=== PATIENT | male | born 1995 | race Caucasian/White ===

== ENCOUNTER 2019-10-01 14:54 | Outpatient (CLI) | payer BC, SELFPAY ==
[2019-10-01 15:23] LABS: HCT 44.8 % (40.0-50.0); Mean Corp. HGB Concentration 33.5 g/dL (32.0-36.0); Mean Corpuscular Hemoglobin 29.9 pg (27.0-33.0); Mean Corpuscular Volume 89.4 fL (80-95); Mean Platelet Volume 9.1 fL (8.0-11.0); Platelet Count 280 x1000/uL (130-400); RBC 5.01 m/cumm (4.50-6.00); RBC Distribution Width 12.9 % (11.8-14.1); White Blood Cell Count 7.51 k/cumm (4.4-10.8)
[2019-10-01 16:18] LABS: Albumin 4.2 g/dL (3.4-5.0); Calcium 9.8 mg/dL (8.5-10.1); Glucose 87 mg/dL (74-106); PHOSPHORUS 4.5 mg/dL (2.6-4.7)
== END 2019-10-01 15:14 ==
PROVIDERS: PCP Internal Medicine; Visit Provider Internal Medicine
DX: G40.89 Other seizures (principal); R79.9 Abnormal finding of blood chemistry, unspecified
CPT/HCPCS: 36415; 82947; 85027; 82040; 82310; 84100

== ENCOUNTER 2020-06-04 17:14 | Emergency (ER) | payer BC, SELFPAY ==
[2020-06-04] VITALS (10 sets, daily range): BP systolic 97–143; BP diastolic 53–87; PULSE 93–110; RESP 16–22; TEMP 36.5; O2SAT 95–98
--- NOTE | 2020-06-04 16:59 | ED.GENADUL_ITS ---
Discharge Plan Disposition Patient Disposition: HOME Condition: Stable Discharge Details Clinical Impression: Near syncope, Seizure disorder Primary Care Provider: Wan Galvin ED Provider: Dang Kate Discharge Instructions Instructions: Near Syncope (ED), Recurrent Seizures in Adults (ED) Additional Instructions: Drink plenty of fluids and get plenty of rest. Alternate tylenol and motrin as needed and directed for pain. Take your Ativan that you have at home with any further episodes or to help with anxiety or sleep. Follow-up with your scheduled appointment with neurology at [facility] on Tuesday. Return immediately to the emergency department if you develop any worsening or new concerning symptoms. Discharge Data Discharge Date/Time-TO BE ENTERED AT DEPARTURE: 06/04/20 18:57 Discharge Physician: Dang Kate Medical Decision Making 25-year-old male with a history of previously diagnosed seizures presents for se izure at home today. Heart rate 110s. Remainder vitals within normal limits. Patient arrives to ED awake and alert and appears nontoxic and in no acute distress. No murmur. No focal deficits. No meningeal signs. EKG obtained which notes a rate of 95, sinus with no acute ST ischemic findings. History and presentation not consistent with acute tox or infectious etiology. Doubt cardiac etiology/arrhythmia and no c/o chest pain, sob, palpitations or sudden syncope and no acute findings on ekg. Screening labs and CT head/c-spine obtained which are negative for acute findings. Case discussed with [facility] neurology who agreed that it is not completely clear that patient has a history of seizures as he has had a normal EEG in the past. Discussed the possibility of starting Keppra which is the safest seizure medication at this time, but as it is unclear if patient actually has a history of seizures and patient does not like to take this medication due to side effects, will hold on any treatment at this time. Patient would rather defer to his upcoming appointment with the epilepsy clinic at [facility] in 2 days. Usual and customary return precautions given prior to discharge. Medical Records Medical records reviewed: Yes I reviewed the patient's medical records. Imaging Data Radiologic Study: Radiologist's impression: CT Head Without Contrast Exam date and time: 06/04/2020 5:38 PM Age: 25 years old Clinical indication: Other: Seizure TECHNIQUE: Imaging protocol: Computed tomography of the head without contrast. Radiation optimization: All CT scans at this facility use at least one of these dose optimization techniques: automated exposure control; mA and/or kV adjustment per patient size (includes targeted exams where dose is matched to clinical indication); or iterative reconstruction. COMPARISON: No relevant prior studies available. FINDINGS: Brain: No evidence for acute transcortical infarct. No mass effect or midline shift. No extra-axial collection. No acute intracranial hemorrhage. Basal cisterns are patent. Ventricles: No ventriculomegaly. Bones/joints: Unremarkable. No acute fracture. Paranasal sinuses: Visualized sinuses are unremarkable. No fluid levels. Mastoid air cells: Visualized mastoid air cells are well aerated. Soft tissues: Unremarkable. IMPRESSION: No acute intracranial hemorrhage or mass effect. CT Cervical Spine Without Contrast Exam date and time: 06/04/2020 5:38 PM Age: 25 years old Clinical indication: Other: Seizure TECHNIQUE: Imaging protocol: Computed tomography images of the cervical spine without contrast. Radiation optimization: All CT scans at this facility use at least one of these dose optimization techniques: automated exposure control; mA and/or kV adjustment per patient size (includes targeted exams where dose is matched to clinical indication); or iterative reconstruction. COMPARISON: No relevant prior studies available. FINDINGS: Vertebrae: No acute fracture or traumatic subluxation. No spondylolisthesis. The atlantooccipital and atlantoaxial articulations are intact. Facet joint alignments are maintained. Discs/Spinal canal/Neural foramina: No significant disc protrusion. No severe spinal canal stenosis. No significant neural foraminal narrowing. Other bones/joints: Occipital condyles are intact. Prevertebral Space: No prevertebral soft tissue swelling. Soft tissues: Unremarkable. Lungs: Lung apices are normal. IMPRESSION: No acute fracture or traumatic subluxation. Lab Data Lab results reviewed: Yes I reviewed the patient's lab results. Labs: Laboratory Tests Range/Units 06/04/20 06/04/20 17:15 17:15 WBC (4.4-10.8) 10^3/uL 8.72 RBC (4.36-5.78) 10^6/uL 4.89 Hgb (13.5-17.5) g/dL 14.6 Hct (40.0-50.0) % 43.2 MCV (80-95) fL 88.3 MCH (27.0-33.0) pg 29.9 MCHC (32.0-36.0) % 33.8 RDW (11.8-14.1) % 12.2 Plt Count (130-400) 10^3/uL 274 MPV (8.0-11.0) fL 8.9 Immature Gran % 0.6 Neutrophils % 65.9 Lymphocytes % 25.2 Monocytes % 7.0 Eosinophils % 1.0 Basophils % 0.3 Nucleated RBC % % 0 Absolute Neutrophils (1.2-6.7) 10^3/uL 5.74 Absolute Lymphocytes (1.2-3.4) 10^3/uL 2.20 Absolute Monocytes (0.1-0.8) 10^3/uL 0.61 Absolute Eosinophils (0.0-0.7) 10^3/uL 0.09 Absolute Basophils (0.0-0.2) 10^3/uL 0.03 Sodium (136-145) mmol/L 139 Potassium (3.5-5.1) mmol/L 3.9 Chloride (98-107) mmol/L 103 Carbon Dioxide (21.0-32.0) mmol/L 25.5 Anion Gap (3-11) mmol/L 10.5 BUN (7-18) mg/dL 13 Creatinine (0.70-1.30) mg/dL 1.17 Estimated GFR/1.73 m2 (mL/min/1.73m2) >= 60.00 Glucose (74-106) mg/dL 106 Calcium (8.5-10.1) mg/dL 8.9 Total Bilirubin (0.2-1.0) mg/dL 0.5 AST (15-37) U/L 22 ALT (16-63) U/L 32 Alkaline Phosphatase (46-116) U/L 112 Total Protein (6.4-8.2) g/dL 7.7 Albumin (3.4-5.0) g/dL 3.8 ECG Data Attestation: I personally reviewed and interpreted this ECG (s) as follows: Interpretation: rate of 95, sinus, no acute ST elevation or depression. Suspect benign early repolarization in 1 and aVL. MO 142. QRS 93. QTc 439. HPI General Mode of arrival: ambulatory . Date/Time Provider Initiated Documentation: 06/04/20 17:18 . Limitations to Documentation: no limitations . Information obtained by: patient . HPI Narrative: Pt is a 25yo M with a history of epilepsy who presents with seizure today. Patient states this is his third seizure in the last year. Patient states his initial seizure was almost 1 year ago and had a second 1 in September 2019. He states his episode today was similar to his previous seizures. Patient states he was sitting at the computer and suddenly felt like the floor was falling out from under him. He states he stood up to take his Ativan which his primary care doctor Dr. Galvin gave him for seizures and sleep but he states he passed out prior to this happening. He states he initially did not have memory of the event but now is starting to recall the details. Patient's dad heard a thump and checked on him and he was facedown on the ground. Patient states he then recalls EMS or his father placing him into a chair. Patient denies any pain associated with the fall. Patient states he feels fine at this time. Patient states he was initially diagnosed with seizures in [place] [facility] last year. He states he questioned his diagnosis as he had a normal EEG and MRI brain around that time. He states he was started on Keppra which he took for 1 week but stopped due to adverse side effects of feeling weird . He states he has a follow-up appointment with the epilepsy clinic at [facility] in 2 days. He states he drank 2 shots of alcohol last night. He denies any other recent illness, fever, head injury, recent travel, no sick contacts or drug use. Review of Systems All systems reviewed & are unremarkable except as noted in HPI and below Constitutional Constitutional: Reports as per HPI, Denies chills and Denies fever(s) Eyes Eyes: Denies blurry vision ENT Ears, Nose, Mouth, and Throat: Denies dizziness, Denies sore throat and Denies throat swelling Cardiovascular Cardiovascular: Denies chest pain and Denies dyspnea Respiratory Respiratory: Denies cough and Denies dyspnea Gastrointestinal Gastrointestinal: Denies abdominal pain, Denies diarrhea and Denies vomiting Genitourinary Genitourinary: Denies hematuria and Denies dysuria Musculoskeletal Musculoskeletal: Denies back pain and Denies numbness Integumentary/Breasts Skin/Breast: Denies lesions and Denies rash Neurologic Neurologic: Denies dizziness, Denies localized weakness, Denies numbness and Reports seizure-like activity Allergic/Immunologic Allergic/Immunologic: Denies throat swelling [facility] Medical History (Updated 06/04/20 @ 18:43 by Dang Kate DO) Anxiety Epilepsy Surgical History (Updated 06/04/20 @ 17:39 by Dang Kate DO) No significant past surgical history Social History Smoking/Tobacco Use Status: Never Alcohol Intake: current Alcohol Intake frequency: 0-2 drinks per day Drug use: Never Substance use type: does not use Do you feel safe at home: Yes Do you feel safe in your relationship?: Yes Exam Const General: cooperative and healthy appearing Orientation: alert and awake HENMT Head: normal to inspection, no palpable skull fracture, normocephalic and atraumatic Ears: hearing grossly normal bilaterally, external ears normal and TM's normal bilaterally General nose exam: external nose normal Face and sinus: normal facial exam Mouth: oral mucosae normal Teeth and gingiva: dentition normal Throat: posterior oropharynx normal Eyes General: appearance normal, both eyes and all related structures Eyelids: eyelids normal Pupils: PERRL EOM: EOM intact bilaterally Neck Neck: normal visual inspection Lymphatic: no lymphadenopathy noted Chest Chest: normal inspection of the chest Resp Effort & Inspection: normal respiratory effort and able to speak in complete sentences Auscultation: clear to auscultation bilaterally Cardio Rate: regular rate Rhythm: regular rhythm GI Inspection: normal to inspection Palpation: soft, not firm, no guarding, no hepatosplenomegaly, no masses and nontender Auscultation: normal bowel sounds Back/Spine/Pelvis Back: no CVA tenderness Skin General skin exam: no rashes or lesions noted Neuro General: patient alert, patient awake, patient oriented x3, moves all extremities and no meningeal signs Cranial Nerves: CN's II-XI intact bilaterally Cognition: normal cognition Speech: speech normal Gait: normal gait Motor: muscle tone normal throughout Sensory Exam: no sensory deficits noted Extrem General: normal to inspection, full ROM and capillary refill normal Psych Appearance: grossly normal Mental Status: mental status grossly normal Speech and Movement: speech and movement normal Affect: normal affect Thought Process: normal
[2020-06-04 17:27] LABS: Abs Immature Grans 0.05 10^3/uL (0.0-0.06); Absolute Basophil Count 0.03 10^3/uL (0.0-0.2); Absolute Eosinophil Count 0.09 10^3/uL (0.0-0.7); Absolute Monocyte Count 0.61 10^3/uL (0.1-0.8); Absolute Neutrophil Count 5.74 10^3/uL (1.2-6.7); Basophils % 0.3; HCT 43.2 % (40.0-50.0); HGB 14.6 g/dL (13.5-17.5); Immature Grans % 0.6; Lymphocytes % 25.2; MCH 29.9 pg (27.0-33.0); MCHC 33.8 % (32.0-36.0); MCV 88.3 fL (80-95); MPV 8.9 fL (8.0-11.0); Neutrophils % 65.9; Nucleated RBC 0 %; Platelet Count 274 10^3/uL (130-400); RBC 4.89 10^6/uL (4.36-5.78); RDW 12.2 % (11.8-14.1); RDW-SD 39.8 fL; WBC 8.72 10^3/uL (4.4-10.8)
--- NOTE | 2020-06-04 17:30 | DI.CT_ITS ---
EXAM: CT HEAD CERVICAL SPINE WO COMPARISON: No exams were available for comparison FINDINGS: CT examination of the cervical spine was performed without contrast administration. There is no evide nce of acute cervical spine fracture or dislocation. Tracheolaryngeal structures appear intact. No ce rvical mass or adenopathy. Intervertebral disc spaces are well maintained. Noncontrast cranial CT was performed. Ventricular system is normal in appearance. No evidence of acut e intracranial hemorrhage, mass effect, or midline shift. No calvarial fracture. The orbital and temp oral bone structures appear intact. IMPRESSION: No evidence of acute cervical spine injury. No evidence of acute intracranial injury. RADIATION DOSE DELIVERED: 1,564.88mGy.cm Total DLP 1,564.88mGy.cm Total DLP DATA REPOSITORY: All CT scans at this facility are submitted to the National Radiology Data Registry (NRDR) Dose Index Registry (DIR) with the [employer] ([employer]). RADIATION OPTIMIZATION: All CT scans at this facility use at least one of these dose optimization te chniques: automated exposure control; mA and/or kV adjustment per patient size (includes targeted exa ms where dose is matched to clinical indication); or iterative reconstruction.
[2020-06-04] MEDS: Normal Saline 1,000 ML 1000 ML IV (17:42)
[2020-06-04 17:47] LABS: ALT 32 U/L (16-63); AST 22 U/L (15-37); Albumin 3.8 g/dL (3.4-5.0); Alkaline Phosphatase 112 U/L (46-116); Anion Gap 10.5 mmol/L (3-11); BUN 13 mg/dL (7-18); Bilirubin, Total 0.5 mg/dL (0.2-1.0); CO2 25.5 mmol/L (21.0-32.0); CREATININE 1.17 mg/dL (0.70-1.30); Calcium 8.9 mg/dL (8.5-10.1); Chloride 103 mmol/L (98-107); Glucose 106 mg/dL (74-106); Potassium 3.9 mmol/L (3.5-5.1); Sodium 139 mmol/L (136-145); Total Protein 7.7 g/dL (6.4-8.2)
--- NOTE | 2020-06-04 18:14 | DI.VRAD_ITS ---
PROCEDURE INFORMATION: Exam: CT Head Without Contrast Exam date and time: 06/04/2020 5:38 PM Age: 25 years old Clinical indication: Other: Seizure TECHNIQUE: Imaging protocol: Computed tomography of the head without contrast. Radiation optimization: All CT scans at this facility use at least one of these dose optimization techniques: automated exposure control; mA and/or kV adjustment per patient size (includes targeted exams where dose is matched to clinical indication); or iterative reconstruction. COMPARISON: No relevant prior studies available. FINDINGS: Brain: No evidence for acute transcortical infarct. No mass effect or midline shift. No extra-axial collection. No acute intracranial hemorrhage. Basal cisterns are patent. Ventricles: No ventriculomegaly. Bones/joints: Unremarkable. No acute fracture. Paranasal sinuses: Visualized sinuses are unremarkable. No fluid levels. Mastoid air cells: Visualized mastoid air cells are well aerated. Soft tissues: Unremarkable. IMPRESSION: No acute intracranial hemorrhage or mass effect. PROCEDURE INFORMATION: Exam: CT Cervical Spine Without Contrast Exam date and time: 06/04/2020 5:38 PM Age: 25 years old Clinical indication: Other: Seizure TECHNIQUE: Imaging protocol: Computed tomography images of the cervical spine without contrast. Radiation optimization: All CT scans at this facility use at least one of these dose optimization techniques: automated exposure control; mA and/or kV adjustment per patient size (includes targeted exams where dose is matched to clinical indication); or iterative reconstruction. COMPARISON: No relevant prior studies available. FINDINGS: Vertebrae: No acute fracture or traumatic subluxation. No spondylolisthesis. The atlantooccipital and atlantoaxial articulations are intact. Facet joint alignments are maintained. Discs/Spinal canal/Neural foramina: No significant disc protrusion. No severe spinal canal stenosis. No significant neural foraminal narrowing. Other bones/joints: Occipital condyles are intact. Prevertebral Space: No prevertebral soft tissue swelling. Soft tissues: Unremarkable. Lungs: Lung apices are normal. IMPRESSION: No acute fracture or traumatic subluxation. Dictated and Authenticated by: Frandy Dee MD. Ordering:JOSE E Leong MD
--- NOTE | 2020-06-04 18:15 | RT.EKG_ITS ---
APPROVED REPORT Exam: Resting ECG Patient Location: E HR:95 bpm ECG Measurements Heart Rate 95 AXIS ND 142 P 61 QRSd 93 QRS 5 QT 349 T 20 QTc 439 Conclusion Sinus rhythm...normal P axis, V-rate 60- 99 Low voltage, precordial leads...precordial leads <1.0mV. Suspect benign early repolarization in I and aVL. T wave inversion in III. No old EKG to compare.
== END 2020-06-04 18:57 | disposition home or self-care (01) ==
LOC: ER 18:46
PROVIDERS: Emergency Provider Physician Assistant; PCP Internal Medicine
DX: G40.909 Epilepsy, unspecified, not intractable, without status epilepticus (principal); R55 Syncope and collapse
CPT/HCPCS: 36415; 80053; 93005; 96360; 99285; 70450; 72125; 85025; 93010

== ENCOUNTER 2020-06-26 01:22 | Outpatient (RCR) | payer BC, SELFPAY ==
[2020-06-26] MEDS: Normal Saline Flush 10 ML SYR IVP (07:19)
[2020-06-26] MEDS: Cosyntropin 0.25 MG VIAL IV (07:19)
[2020-06-26 07:20] VITALS: BP 113/77; PULSE 69; RESP 18; TEMP 36.6; O2SAT 97
[2020-06-26 07:54] LABS: Glucose 97 mg/dL (74-106)
[2020-06-26 17:57] LABS: Cortisol (Baseline) 12 ug/dL (4-23)
[2020-06-27 11:59] LABS: C-Peptide 2.4 ng/mL (1.1 - 4.4)
[2020-06-27 12:55] LABS: Adrenocorticotropic Hormone, P 48 pg/mL
== END 2020-07-19 23:59 | disposition home or self-care (01) ==
LOC: INF 01:22
PROVIDERS: PCP Internal Medicine; Visit Provider Internal Medicine
DX: G40.909 Epilepsy, unspecified, not intractable, without status epilepticus (principal); E83.51 Hypocalcemia
CPT/HCPCS: 36415; 80400; 82533; 82947; 87206; 96372; 82024; 83525; 84681; J0834

== ENCOUNTER 2020-09-13 04:33 | Emergency (ER) | payer BC, SELFPAY ==
[2020-09-13 04:36] VITALS: BP 121/80; PULSE 89; RESP 16; TEMP 36.5; O2SAT 97
--- NOTE | 2020-09-13 04:51 | ED.GENADUL_ITS ---
Discharge Plan Disposition Patient Disposition: HOME Condition: Good Discharge Details Clinical Impression: Panic attack Primary Care Provider: Wan Galvin ED Provider: Yaya Flower [place] Meds and New Rx's Prescriptions: Continued sertraline 50 mg Tablet 50 mg PO DAILY RF: 0 loratadine [Claritin] 10 mg Tablet 10 mg PO DAILY RF: 0 fluticasone furoate 100 mcg/actuation Blister With Device 1 inh INHALATION DAILY RF: 0 Discharge Instructions Instructions: Panic Attack (ED) Additional Instructions: Use the Ativan provided if needed. Contact PCP Tuesday for new prescription for Ativan if you feel that would be beneficial. Continue to see your therapist. Return to ED for problems. Referrals: Wan Galvin MD [Primary Care Provider] - Medical Decision Making Patient feels much better now. Nausea resolving. No longer panicky. Offered Ativan which he has used in past. Declined to take currently, but would like one 0.5 mg tab to go in case needed. Will contact PCP Tuesday for prescription if he feels it is necessary. HPI General Mode of arrival: ambulatory . Date/Time Provider Initiated Documentation: 09/13/20 04:40 . Limitations to Documentation: no limitations . Information obtained by: patient and RN notes reviewed . HPI Narrative: Patient presents to ED after waking up with panic attack. Has history of same, though this was a particularly severe one. Took CBD oil and magnesium calming supplement with little help at home, but now doing much better here. Developed severe nausea but no emesis. No CP or SOB. No syncope. Has not been ill. Related Data Home Medications Medication Instructions Recorded Confirmed fluticasone furoate 1 inh INHALATION DAILY 09/13/20 09/13/20 loratadine [Claritin] 10 mg PO DAILY 09/13/20 09/13/20 sertraline 50 mg PO DAILY 09/13/20 09/13/20 Allergies Allergy/AdvReac Type Severity Reaction Status Date / Time annatto Allergy Skin Rash Unverified 09/13/20 04:41 environmental Allergy Skin Rash Uncoded 09/13/20 04:41 General Stated Complaint: Anxiety BOLIVAR: 5 Review of Systems Narrative: As documented in HPI otherwise negative as below. Const: no fever, chills, weakness Resp: no cough, SOB, pleuritic pain CV: no CP, diaphoresis, edema, syncope GI: no abdominal pain, vomiting, diarrhea Neuro: no headache, numbness, focal weakness, confusion [facility] Medical History Anxiety Epilepsy Surgical History No significant past surgical history Social History Smoking/Tobacco Use Status: Never Smoking risk assessment performed?: Yes Alcohol Intake: current Alcohol Intake frequency: a few times a month Drug use: Never Substance use type: does not use Do you feel safe at home: Yes Do you feel safe in your relationship?: Yes Exam Narrative Exam Narrative: Const: WDWN male in NAD. HEENT: NC/AT. Normal facial exam. Eyes: Normal conjunctiva and sclera. Neck: Supple. Trachea midline. Lungs: Normal respiratory effort. Lungs are clear. Cor: RRR without murmur/gallop. Good radial pulses. Neuro: A+O x 3. Normal speech, mentation, gait. Cranial nerves II - XII grossly intact. No gross motor or sensory deficit. Skin: Warm and dry. Psych: Calm currently. Good insight and judgment. Course Vital Signs Vital signs: Vital Signs Temperature 97.7 F 09/13/20 04:36 Pulse 89 09/13/20 04:36 Respiratory Rate 16 09/13/20 04:36 Blood Pressure 121/80 09/13/20 04:36 Pulse Oximetry 97 09/13/20 04:36 Temperature 97.7 F 09/13/20 04:36 Temperature Source Skin 09/13/20 04:36 Pulse 89 09/13/20 04:36 Respiratory Rate 16 09/13/20 04:36 Respiratory Effort Non-Labored 09/13/20 04:40 Blood Pressure 121/80 09/13/20 04:36 Blood Pressure Position Sitting 09/13/20 04:36 Pulse Oximetry 97 09/13/20 04:36 Oxygen Delivery Method Room Air 09/13/20 04:36 Oxygen Flow Rate 0 09/13/20 04:36 Pain Level 0 09/13/20 04:36
[2020-09-13] MEDS: LORazepam 0.5 MG TAB PO (04:59)
== END 2020-09-13 04:50 | disposition home or self-care (01) ==
LOC: ER 05:08
PROVIDERS: Emergency Provider Emergency Medicine; PCP Internal Medicine
DX: F41.0 Panic disorder [episodic paroxysmal anxiety] (principal)
CPT/HCPCS: 99283

== ENCOUNTER 2020-10-04 15:18 | Emergency (ER) | payer BC, SELFPAY ==
[2020-10-04] VITALS (13 sets, daily range): BP systolic 114–129; BP diastolic 69–74; PULSE 92–114; RESP 16–27; TEMP 36.7; O2SAT 92–98
--- NOTE | 2020-10-04 15:15 | RT.EKG_ITS ---
APPROVED REPORT Exam: Resting ECG Patient Location: E HR:106 bpm ECG Measurements Heart Rate 106 AXIS GA 141 P 57 QRSd 86 QRS 16 QT 326 T 56 QTc 433 Conclusion Sinus tachycardia...rate> 99 Low voltage, precordial leads...precordial leads <1.0mV I have reviewed and interpreted ECG and agree with software generated interpretation.
--- NOTE | 2020-10-04 15:29 | W.ED.GENAD ---
Discharge Plan Disposition Patient Disposition: HOME Condition: Improving Discharge Details Clinical Impression: Seizure Primary Care Provider: Wan Galvin ED Provider: Dang Kate Home Meds and New Rx's Prescriptions: New oxcarbazepine [Trileptal] 150 mg tablet See Rx Instructions .ROUTE .COMPLEX Qty: 168 RF: 0 Continued cannabidiol 100 mg/mL Solution PO RF: 0 sertraline 50 mg Tablet 50 mg PO DAILY RF: 0 loratadine [Claritin] 10 mg Tablet 10 mg PO DAILY RF: 0 fluticasone furoate 100 mcg/actuation Blister With Device 1 inh INHALATION DAILY RF: 0 Discharge Instructions Instructions: Epilepsy (ED) Additional Instructions: Drink plenty of fluids and get plenty of rest. Take the seizure medication as directed. Fill your trileptal seizure medication prescription that you have at home and take as directed. You were given an additional prescription here if you cannot find your prescription at home. Call your neurologist Dr. Stoddard on Tuesday morning to schedule a follow-up appointment for reevaluation. Return immediately to the emergency department if you develop any worsening or new concerning symptoms. Stand Alone Forms: Work Release Discharge Data Discharge Date/Time-TO BE ENTERED AT DEPARTURE: 10/04/20 17:20 Discharge Physician: Dang Kate Medical Decision Making 1520 -- 24-year-old male with a history of epilepsy diagnosed at [facility] and a history of anxiety for which she takes Zoloft presents after a possible seizure with reported tonic-clonic activity at work prior to arrival. Patient does not recall this episode but stated he felt lightheaded prior to what staff noted was possibly seizure-like activity and a fall. EMS reported that he appeared postictal but patient is now awake and alert and able to provide history and appears in no acute distress. Evaluation of tongue notes a distal tip abrasion/contusion, no open lacerations. Moves all extremities without evidence of pain or trauma. No focal deficits. Patient is followed by neurology Dr. Stoddard at [facility] whom he last saw in August and was given a prescription for Trileptal which she did not start. Patient states he has had reactions in the past with Lamictal and Keppra and would rather not take medications. This is patient's fourth hospitalization in the last 18 months. I saw the patient in May and had discussed with [facility] neurology who noted that he had had a previous negative EEG. He had also had a negative MRI brain at [facility]. We will obtain screening labs and call [facility] neurology. 1600 --labs reviewed and note a white blood cell count of 11, bicarb 17, anion gap 21. With noted tongue contusion and metabolic acidosis, I do suspect that patient likely had a seizure. Case discussed with [facility] neurology on-call Dr. Smith --he reviewed patient's chart and they have diagnosed patient with seizures. He discussed that patient was given a prescription for Trileptal from Dr. Stoddard last month but patient was hesitant to start it. Discussed with patient at bedside and he is agreeable with starting the Trileptal. It was recommended that he take this with incremental increases from 150 at night up to 600 twice daily increasing by 150mg weekly. Patient is recommended to call Dr. Stoddard's office on Tuesday for follow-up. Bicarb and anion gap normalized after IV fluids. Usual and customary return precautions given prior to discharge. Medical Records Medical records reviewed: Yes I reviewed the patient's medical records. Lab Data Lab results reviewed: Yes I reviewed the patient's lab results. Labs: Laboratory Tests Range/Units 10/04/20 10/04/20 10/04/20 15:10 15:10 17:06 WBC (4.4-10.8) 10^3/uL 11.33 H RBC (4.36-5.78) 10^6/uL 5.24 Hgb (13.5-17.5) g/dL 15.7 Hct (40.0-50.0) % 47.2 MCV (80-95) fL 90.1 MCH (27.0-33.0) pg 30.0 MCHC (32.0-36.0) % 33.3 RDW (11.8-14.1) % 12.0 Plt Count (130-400) 10^3/uL 327 MPV (8.0-11.0) fL 9.4 Immature Gran % 0.4 Neutrophils % 47.4 Lymphocytes % 42.5 Monocytes % 7.8 Eosinophils % 1.3 Basophils % 0.6 Nucleated RBC % % 0 Absolute Neutrophils (1.2-6.7) 10^3/uL 5.37 Absolute Lymphocytes (1.2-3.4) 10^3/uL 4.82 H Absolute Monocytes (0.1-0.8) 10^3/uL 0.88 H Absolute Eosinophils (0.0-0.7) 10^3/uL 0.15 Absolute Basophils (0.0-0.2) 10^3/uL 0.07 Sodium (136-145) mmol/L 141 142 Potassium (3.5-5.1) mmol/L 3.5 3.5 Chloride (98-107) mmol/L 102 106 Carbon Dioxide (21.0-32.0) mmol/L 17.6 L 28.5 Anion Gap (3-11) mmol/L 21.4 H 7.5 BUN (7-18) mg/dL 11 13 Creatinine (0.70-1.30) mg/dL 1.57 H 1.34 H Estimated GFR/1.73 m2 (mL/min/1.73m2) 55.02 >= 60.00 Glucose (74-106) mg/dL 111 H 70 L Calcium (8.5-10.1) mg/dL 9.0 8.0 L Total Bilirubin (0.2-1.0) mg/dL 0.6 AST (15-37) U/L 22 ALT (16-63) U/L 31 Alkaline Phosphatase (46-116) U/L 123 H Total Protein (6.4-8.2) g/dL 8.7 H Albumin (3.4-5.0) g/dL 4.3 ECG Data Attestation: I personally reviewed and interpreted this ECG (s) as follows: Interpretation: Rate of 106, sinus, no acute ST elevation or depression. CA 106. QRS 86. QTc 433. HPI General Mode of arrival: EMS. Date/Time Provider Initiated Documentation: 10/04/20 15:29. Limitations to Documentation: no limitations. Information obtained by: patient. HPI Narrative: Patient is a 25-year-old male with a history of anxiety and epilepsy who presents for possible seizure at work prior to arrival. Patient states he has been feeling fine up until possible seizure activity today. Patient states he was standing at work and began to feel lightheaded. Patient does not recall anything until he was being carried out on the stretcher by EMS. Patient states he did bite his tongue. Patient states her first possible seizure was diagnosed 18 months ago for which she is followed by neurology Dr. Surekha Stoddard at [facility]. He states he has been unable to take Keppra due to it making his head weird and unable to take Lamictal due to rash. He last saw Dr. Hood in August and she gave him a prescription for Trileptal which she did not fill. Patient states he has been told by [facility] that he does have a history of seizures but had has a negative EEG at [facility] and a negative MRI brain at [facility]. Patient states he does not like the side effects of medications and is questioning whether he has seizures so does not take the medication. He states he uses CBD oil and takes Zoloft for his anxiety. He denies any other alcohol or drug use or other new over the counter medications. He denies any fever, cough, chest pain, shortness of breath, abdominal pain. Related Data Home Medications Medication Instructions Recorded Confirmed fluticasone furoate 1 inh INHALATION DAILY 09/13/20 09/13/20 loratadine [Claritin] 10 mg PO DAILY 09/13/20 10/04/20 sertraline 50 mg PO DAILY 09/13/20 10/04/20 cannabidiol mg PO 10/04/20 oxcarbazepine [Trileptal] See Rx Instructions .ROUTE 10/04/20 .COMPLEX #168 tab Previous Rx's Medication Instructions Recorded oxcarbazepine [Trileptal] See Rx Instructions .ROUTE 10/04/20 .COMPLEX #168 tab Allergies Allergy/AdvReac Type Severity Reaction Status Date / Time annatto Allergy Skin Rash Unverified 10/04/20 15:26 environmental Allergy Skin Rash Uncoded 10/04/20 15:26 General Stated Complaint: Seizure BOLIVAR: 3 Review of Systems All systems reviewed & are unremarkable except as noted in HPI and below Constitutional Constitutional: Reports as per HPI, Denies chills and Denies fever(s) Eyes Eyes: Denies blurry vision ENT Ears, Nose, Mouth, and Throat: Denies dizziness, Denies sore throat and Denies throat swelling Cardiovascular Cardiovascular: Denies chest pain and Denies dyspnea Respiratory Respiratory: Denies cough and Denies dyspnea Gastrointestinal Gastrointestinal: Denies abdominal pain, Denies diarrhea and Denies vomiting Genitourinary Genitourinary: Denies hematuria and Denies dysuria Musculoskeletal Musculoskeletal: Denies back pain and Denies numbness Integumentary/Breasts Skin/Breast: Denies lesions and Denies rash Neurologic Neurologic: Denies dizziness, Denies localized weakness and Denies numbness Allergic/Immunologic Allergic/Immunologic: Denies throat swelling [facility] Medical History Anxiety Epilepsy Surgical History No significant past surgical history Social History Smoking/Tobacco Use Status: Never Smoking risk assessment performed?: Yes Alcohol Intake: former Drug use: Never Substance use type: does not use Do you feel safe at home: Yes Do you feel safe in your relationship?: Yes Exam Const General: cooperative and healthy appearing Orientation: alert and awake HENMT Head: normal to inspection, normocephalic and atraumatic Ears: hearing grossly normal bilaterally and external ears normal General nose exam: external nose normal Face and sinus: normal facial exam Mouth: oral mucosae normal Mouth/tongue images: 1. Mild contusion/abrasion. No lacerations. Teeth and gingiva: dentition normal Throat: posterior oropharynx normal Eyes General: appearance normal, both eyes and all related structures Eyelids: eyelids normal Pupils: PERRL EOM: EOM intact bilaterally Neck Neck: normal visual inspection Lymphatic: no lymphadenopathy noted Chest Chest: normal inspection of the chest Resp Effort & Inspection: normal respiratory effort and able to speak in complete sentences Auscultation: clear to auscultation bilaterally Cardio Rate: regular rate Rhythm: regular rhythm GI Inspection: normal to inspection Palpation: soft, not firm, no guarding, no hepatosplenomegaly, no masses and nontender Auscultation: normal bowel sounds Back/Spine/Pelvis Back: no CVA tenderness Skin General skin exam: no rashes or lesions noted Neuro General: patient alert, patient awake, moves all extremities, no meningeal signs and no focal motor deficits Cranial Nerves: CN's II-XI intact bilaterally Cognition: normal cognition Speech: speech normal Gait: normal gait Motor: muscle tone normal throughout and strength 5/5 throughout Sensory Exam: no sensory deficits noted Extrem General: normal to inspection, full ROM and capillary refill normal Other: No pain with range of motion or tenderness to palpation of bilateral upper or lower extremities. Psych Appearance: grossly normal Mental Status: mental status grossly normal Speech and Movement: speech and movement normal Affect: normal affect Thought Process: normal Course Vital Signs Vital signs: Vital Signs Temperature 98.1 F 10/04/20 15:19 Pulse 114 H 10/04/20 15:19 Respiratory Rate 18 10/04/20 15:19 Blood Pressure 121/73 10/04/20 15:19 Pulse Oximetry 94 10/04/20 15:19 Temperature 98.1 F 10/04/20 15:19 Temperature Source Temporal Artery Scan 10/04/20 15:19 Pulse 114 H 10/04/20 15:19 Respiratory Rate 18 10/04/20 15:19 Respiratory Effort Non-Labored 10/04/20 15:27 Blood Pressure 121/73 10/04/20 15:19 Blood Pressure Position Sitting 10/04/20 15:19 Pulse Oximetry 94 10/04/20 15:19 Oxygen Delivery Method Room Air 10/04/20 15:19 Oxygen Flow Rate 0 10/04/20 15:19 Pain Level 0 10/04/20 15:19
[2020-10-04 15:32] LABS: Abs Immature Grans 0.05 10^3/uL (0.0-0.06); Absolute Basophil Count 0.07 10^3/uL (0.0-0.2); Absolute Eosinophil Count 0.15 10^3/uL (0.0-0.7); Absolute Monocyte Count 0.88 10^3/uL (0.1-0.8); Absolute Neutrophil Count 5.37 10^3/uL (1.2-6.7); Basophils % 0.6; Eosinophils % 1.3; HCT 47.2 % (40.0-50.0); HGB 15.7 g/dL (13.5-17.5); Immature Grans % 0.4; Lymphocytes % 42.5; MCHC 33.3 % (32.0-36.0); MCV 90.1 fL (80-95); MPV 9.4 fL (8.0-11.0); Monocytes % 7.8; Neutrophils % 47.4; Nucleated RBC 0 %; Platelet Count 327 10^3/uL (130-400); RBC 5.24 10^6/uL (4.36-5.78); RDW-SD 39.3 fL; WBC 11.33 10^3/uL (4.4-10.8)
[2020-10-04 15:34] LABS: Absolute Lymphocyte Count 4.82 10^3/uL (1.2-3.4)
[2020-10-04 15:53] LABS: ALT 31 U/L (16-63); AST 22 U/L (15-37); Albumin 4.3 g/dL (3.4-5.0); Alkaline Phosphatase 123 U/L (46-116); Anion Gap 21.4 mmol/L (3-11); BUN 11 mg/dL (7-18); Bilirubin, Total 0.6 mg/dL (0.2-1.0); CO2 17.6 mmol/L (21.0-32.0); CREATININE 1.57 mg/dL (0.70-1.30); Chloride 102 mmol/L (98-107); Estimated GFR 55.02 (mL/min/1.73m2); Glucose 111 mg/dL (74-106); Potassium 3.5 mmol/L (3.5-5.1); Sodium 141 mmol/L (136-145); Total Protein 8.7 g/dL (6.4-8.2)
[2020-10-04] MEDS: Normal Saline 1,000 ML 1000 ML IV (15:58)
[2020-10-04] MEDS: OXcarbazepine 150 MG TAB 300 MG PO (17:09)
[2020-10-04 17:18] LABS: Anion Gap 7.5 mmol/L (3-11); BUN 13 mg/dL (7-18); CO2 28.5 mmol/L (21.0-32.0); CREATININE 1.34 mg/dL (0.70-1.30); Chloride 106 mmol/L (98-107); Glucose 70 mg/dL (74-106); Potassium 3.5 mmol/L (3.5-5.1); Sodium 142 mmol/L (136-145)
== END 2020-10-04 17:20 | disposition home or self-care (01) ==
PROVIDERS: Emergency Provider Physician Assistant; PCP Internal Medicine
DX: G40.909 Epilepsy, unspecified, not intractable, without status epilepticus (principal); E87.2 Acidosis
CPT/HCPCS: 36415; 36416; 80048; 80053; 82962; 93005; 96360; 99284; 85025; 93010

== ENCOUNTER 2020-10-13 13:18 | Outpatient (REF) | payer BC, SELFPAY ==
--- OUTSIDE RECORDS SUMMARY | 2020-10-13 13:20 | XMS_ITS ---
:1995 Author Care Team Providers Name Role Phone ANU MORALES Primary Care Provider [phone] Allergies Code Code System Name Reaction Severity Status Onset 1877430 RxNorm Annatto ? ? Active ? Cat Dander ? ? Active ? Grass Pollen ? ? Active ? 530258 RxNorm House Dust ? ? Active ? Medications Name Status Start Date Stop Date ? ? Lacey 180 mg tablet Active ? Not availa ble Take 1 tablet every day by oral route. Allergy Relief (fluticasone) 50 mcg/actuation nasal spray,suspen danilo Active ? Not available Sterling 1 spray every day by intranasal route. benzonatate 100 mg capsule Active ? Not a vailable fluoxetine 10 mg capsule Active ? Not manju ilable lamotrigine 25 mg tablet Active ? Not manju ilable levetiracetam 500 mg tablet Active ? Not available lorazepam 0.5 mg tablet Completed ? 08/27/20 20 Take 2 tablets 3 times a day by oral route. oxcarbazepine 300 mg tablet Active ? Not available polymyxin B sulfate 10,000 Active ? Not a vailable unit-trimethoprim 1 mg/mL eye drops sertraline 50 mg tablet Active ? Not avai lable Take 1 tablet every day by oral route. triamcinolone 0.1 % topical ointment Active ? Not available and dimethicone 5 % topical cream zolpidem 5 mg tablet Active ? Not availab le take 1-2 PO night of sleep study if needed Problems Name Status Onset Date Source ? Anxiety Active 07/10/2020 ? Seizure Disorder Active 07/10/2020 ? Hypoglycemia Active 07/21/2020 ? Allergic Rhinitis Active 07/21/2020 ? Eczema Active 07/21/2020 ? Blood Chemistry Abnormal Active 07/21/2020 ? History of Asthma Active 07/21/2020 ? Snoring Active 08/27/2020 ? Procedures None recorded. Results Lab Results None recorded. Past Encounters 08/27/2020 Snoring; Seizure Disorder Apolonia Alvarez [employer]: [address] [place] [phone], Ph. Social History Tobacco Smoking Status Never Smoker Vaccine List None recorded. Plan of Care Reminders Provider Appointments None ? ? recorded. Lab None ? ? recorded. Referral None ? ? recorded. Procedures None ? ? recorded. Surgeries None ? ? recorded. Imaging None ? ? recorded. Vitals Height Weight BMI Blood Pressure 180.34 cm 119.29 kg 36.7 kg/m2 130/80 mm[Hg]
--- OUTSIDE RECORDS SUMMARY | 2020-10-13 13:20 | XMS_ITS | Encounter Summary ---
:1995 Author Care Team Providers Name Role Phone Lamont Galvin Primary Care Provider [phone] Reason for Visit None recorded. Assessment and Plan 1. Snoring Carlos has symptoms of snoring, nocturnal gasping and fatigue with a Somerset score of 2/3 indicating a high likelihood of sleep apnea. He has a neck circumference is 17.25 and he has tonsillar hypertrophy which increases risk of JOLENE. He also has a diagnosis of generalized seizures with most recent occurring . Given that untreated sleep apnea may lower seizure threshold it is recommended he bello ve a PSG for evaluation. His mom has JOLENE and uses a CPAP. I discussed the pathophysiology of obstructive sleep apnea and the potential consequences of untreated JOLENE including how it relates to his sympt oms and comorbidities. I ordered a polys omnogram and discussed what will take place the night of the sleep study. He is given a Rx for AMbien to tae for the study if needed and is advised that if taken he will need to not drive for at least e ight hours after taking or longer if for any residual drowsiness. Also will need to use caution when getting up at night after taking Ambien. I will see him back to review the results as soon as they ar e available. I have ordered an extended EEG given his potential seizure history. I provided greater than 40 minutes in e care of this patient, more than half the time was spent in [id number] counseling. ? sleep study, baseline diag nostic polysomnogram - extended EEG ? zolpidem 5 mg tablet 2. Seizure disorder I did not have any neurology n otes at the time of his appointment. Carlos tells me he had his first seizure 05/2019 and it was tonic clonic. He then had two more in 09/2019 and 05/2020. The most recent one he collaps ed and his [facility] found him, prior to collapsing he had a sensation of falling and seeing bright lights. He was out for a couple of minutes in total and he was told he had no movements at all while he was not aware. He felt confused for 2-5 minutes upon awakening. He had a MRI brain and two CT heads which were reportedly nml. He had a 72 hour EEG at [facility] in 2019 and there was reportedly no seizure activity . He says more recently he was told it may be anxiety. He feels like it may be from withdrawing from lorazepam. He has now been off this for two months and has be en feeling much better. He has only occa sional anxiety now. He says he can NOT tolerat e lamictal or any other seizure medications he has tried. Discussion Note: None recorded.Patient educational handouts: No information available. Plan of Care Reminders Provider Appointments Office 11/06/2020 Michael Alvarez, 3:30PM INFORMATION SECURITY ANALYST Lab None ? ? recorded. Referral None ? ? recorded. Procedures None ? ? recorded. Surgeries None ? ? recorded. Imaging None ? ? recorded. Medications Name Start Date ? ? Lacey 180 mg tablet ? Take 1 tablet every day by oral route. Allergy Relief (fluticasone) 50 mcg/actuation nasal sp ray,suspension ? [place] 1 spray every day by intranasal route. benzonatate 100 mg capsule ? fluoxetine 10 mg capsule ? lamotrigine 25 mg tablet ? levetiracetam 500 mg tablet ? oxcarbazepine 300 mg tablet ? polymyxin B sulfate 10,000 unit-trimethoprim 1 mg/mL e ye drops ? sertraline 50 mg tablet ? Take 1 tablet every day by oral route. triamcinolone 0.1 % topical ointment and dimethicone 5 % topical ? cream zolpidem 5 mg tablet ? take 1-2 PO night of sleep study if needed Medications Administered None recorded. Vitals Height Weight BMI Blood Pressure 5 ft 11 in 263 lbs 36.7 kg/m2 130/80 mm[Hg] Results Lab Results None recorded. Allergies Code Code System Name Reaction Severity Onset 6822469 RxNorm Annatto ? ? ? Cat Dander ? ? ? Grass Pollen ? ? ? 228975 RxNorm House Dust ? ? ? Problems Name Status Onset Date Source ? Anxiety Active 07/10/2020 ? Seizure Disorder Active 07/10/2020 ? Hypoglycemia Active 07/21/2020 ? Allergic Rhinitis Active 07/21/2020 ? Eczema Active 07/21/2020 ? Blood Chemistry Abnormal Active 07/21/2020 ? History of Asthma Active 07/21/2020 ? Snoring Active 08/27/2020 ? Procedures None recorded. Vaccine List None recorded. Social History Tobacco Smoking Status Never Smoker Alcohol intake Occasional Notes: 1 -2 drink s a month Live alone or with others? with others Animal exposure? Y Notes: 3 cats Are you currently employed? Y Blind or serious difficulty N seeing Chewing tobacco none Hard of hearing or deaf in one N or both ears? E-cigarette/Vape Status Former user of electronic Notes: 1 weeks worth cigarettes Caffeine intake Occasional Notes: 3x tea Functional Status No Impairment. Past Encounters 08/27/2020 Snoring; Seizure Disorder Apolonia Alvarez, INFORMATION SECURITY ANALYST: [address] [place] [phone], Ph. History of Present Illness Note: <p>Carlos Caro is seen in consultation at the request of Wan Galvin MD for evaluation of possible sleep apnea given seizure history.</p><p>
</p><p>Sreekanth a medical history to include obesity, hypoglycemia, seizure disorder, anxiety, OCD, depression, and allergic rhinitis. Labs reviewed from 06/04/20 included a normal CMP and CBC.</p><p>Carlos tells me he was told he had his first seizure 05/2019 and it was tonic clonic. He then had two more 09/2019 and the 05/2020. The most recent one he collapsed and his father found him, prior to collapsing he had a sensation of falling and seeing bright lights. He was out for a couple of minutes in total and he was told he had no movements at all. He felt confused for 2-5 minutes. He had an MRI brain and two CT heads which were reportedly nm. He had a 72 hour EEG with [facility] in [place] and there was reportedly no seizure activity. He says more recently he was told it may be anxiety. He feels likeit may be from withdrawing from lorazepam. He has no been off this for two months and has been feeling much better. He has only occasional anxiety now. He says he can NOT tolerate lamictal or any otherseizure medications. </p><p>
</p><p>{{Carlos# Patient}} feels {{his * her}} biggest problem with sleep is {{snoring and insomnia# snoring waking up a lot not feeling rested}}. {{He * She}} typically goes to bed at {{2:30# 9}}pm. It takes {{30-60# 5}} minutes to fall asleep. {{He * She}} wakes up {{0-2# 1 2 3}} times a night from {{noise or anxiety# unknown reason pain bathroom}} and it takes {{10# }} minutes to get back to sleep (most nights he sleeps straight through though). {{He * She }} gets up at {{10# 5 6 7 8}}am to noon to start {{his * her}} day. {{He * She}} does take naps 1/day for 30-120 minutes. {{He * She}} has disturbances to {{his * her}} sleep to include having {{TV * lights noise children pets}} in the bedroom at night. {{He * She}} has never had a sleep study. {{He * She}} sleeps {{alone * with someone}} in a bed.

SLEEP QUALITY: Feels quality of sleep most nights is {{good okay * poor}}.& lt;br>

DAYTIME ALERTNESS: Reports level of alertness most days to be {{alert to low energy # alert low energy sleepy very sleepy}}.

PSYCH SYMPTOMS: {{Has Has not*}} noted worsening memory {{and or*}} concentration. {{Does have Denies current problems with *}} irritability but has depression {{and * or}} anxiety. {{Has Has not*}} noted difficulty with calculations.

INSOMNIA SYMPTOMS: {{Does have * Does not have}} an active mind at night when trying to sleep. {{Does have * Does not have}} stressful thoughts interfering with sleep. {{Does * Does not}} watch the clock throughout the night. {{Does * Does not}} worry about getting a good night's sleep.

BREATHING SYMPTOMS: {{Does have * Does not have}} snoring. {{Does have Does not have*}} witnessed apnea. {{Does have * Does not have}} nocturnal choking/gasping/dyspnea.{{Does have Does not have*}} mouth breathing. {{Does have Does not have*}} nasal congestion at night.

MOVEMENT SYMPTOMS: {{Does have * Does not have}} tossing & turning. {{Does have Does not have*}} messy sheets in the morning. {{Does have Does not have*}} leg or arm jerks, kicks or twitches in sleep or prior to falling asleep. {{Does Does not*}} have an aching, restless or crawling feeling in legs at night. {{Does Does not*}} have a hard time keeping legs still when trying to sleep. {{Does Does not*}} have muscle cramps or Akash horses. {{Does Does not*}} have sleep walking or talking.

DREAM SYMPTOMS: {{Does have Does not have*}} nightmares often that affect ability to sleep. {{Does have Does not have*}} dreams of suffocating/drowning. {{Does Does not*}} dream shortly after falling asleep. {{Does Does not*}} see dreams in the room even when awake.{{Does * Does not}} see or hear things in the room when falling asleep that aren't really there. {{Does Does not*}} see things in the road when driving that aren't really there. {{Has Has not*}} had someone see then act our their dreams. {{Has Has not*}} accidentally injured themselves while sleeping due to own movements/behaviors.

CATAPLEXY SYMPTOMS: {{Does have Does not have*}} feel limp, lose strength, or fall asleep when very angry, surprised or laughing. {{Does have Does not have*}} leg, arm or face weakness when upset. {{Has Has not*}} had episodes of being unable to move when waking up which is often frightening.

DRIVING: {{Has Has not*}} fallen asleep or nearly fallen asleep driving. {{Has had Has not had*}} an accident related to drowsy driving or not paying attention. {{Does Does not*}} forget the last few miles or minutes while driving. {{Has Has not*}} driven out of [place] and crossed center line or gone onto shoulder when driving. {{Has Has not*}} had apassenger tell them they look sleepy when driving.

ESS today 04/11
BerlinQuestionnaire Score 2/3</p>Review of Systems: ROS as noted in the HPI Review of Systems ? Notes: <p>wakes with dry mouth.</p> <p>He denies any night sweats, nocturia, bruxism or morning headaches.</p> Physical Exam ? Notes: <p>General: A&O, well groome d, answers questions appropriately, {{over weight obese * morbidly obese normal weight thin}}.
HEAD: normocephalic & atraumatic, {{normal appeari ng chin * retrognathia}}.
EYES: non icteric.
NOSE: open nasal passages, septum midline, no polyps or masses.
THROAT/MOUTH: amari st mucous membranes, modified mallampati score {{1 2 * 3 4}}, tonsils with hypertrophy. Lateral wall narrowing grade {{1 2 3*}}. Tongue scalloping {{ is * is not}} noted.
NECK: supple without palpable lymph nodes.
FLYNN GS: CTA all moody. Good air movement.
CARDIO: RRR without murmur, gallop o r thrill.
ABDOMEN: soft and non tender with positive bowel sounds.
MS : Good ROM of all extremities. No cyanosis, clubbing or edema.
NEURO: A&O. Normal gait.
PSYCH: Normal mood and affect.
CUTANEOUS: no ove rt lesions or rashes</p>
[2020-10-16 20:09] LABS: Cortisol, U 6.7 mcg/24 h (3.5-45); Urine Volume 800 mL
== END 2020-10-13 13:38 ==
LOC: NCHCN 13:18
PROVIDERS: PCP Internal Medicine; Visit Provider Internal Medicine
DX: R79.89 Other specified abnormal findings of blood chemistry (principal)
CPT/HCPCS: 81050; 82530; 83789

== ENCOUNTER 2020-12-05 15:34 | Outpatient (REF) | payer BC, SELFPAY ==
[2020-12-06 17:18] LABS: Creatinine,24hr Ur 2.35 g/24hr (0.95-2.49); Total Volume 825 ml
[2020-12-10 22:27] LABS: Cortisol, U 24 mcg/24 h (3.5-45); Urine Volume 825 mL
== END 2020-12-06 15:35 | disposition home or self-care (01) ==
LOC: LBN 15:34
PROVIDERS: PCP Internal Medicine; Visit Provider Internal Medicine Endocrinology, Diabetes & Metabolism
DX: E24.9 Cushing's syndrome, unspecified (principal)
CPT/HCPCS: 81050; 82530; 82570; 83789

== ENCOUNTER 2020-12-10 16:44 | Outpatient (REF) | payer BC, SELFPAY ==
[2020-12-16 19:13] LABS: Cortisol, U 24 mcg/24 h (3.5-45); Urine Volume 950 mL
== END 2020-12-10 16:45 | disposition home or self-care (01) ==
LOC: LBN 16:44
PROVIDERS: PCP Internal Medicine; Visit Provider Internal Medicine Endocrinology, Diabetes & Metabolism
DX: E24.9 Cushing's syndrome, unspecified (principal)
CPT/HCPCS: 81050; 82530; 83789

== ENCOUNTER 2020-12-19 02:16 | Outpatient (CLI) | payer BC, SELFPAY | END 2020-12-19 02:17 | disposition home or self-care (01) | LOC: LBO 02:16 | PROVIDERS: PCP Internal Medicine; Visit Provider Internal Medicine Endocrinology, Diabetes & Metabolism | DX: E24.9 Cushing's syndrome, unspecified (principal); Z51.81 Encounter for therapeutic drug level monitoring | CPT/HCPCS: 36415; 82533 ==

== ENCOUNTER 2021-01-14 03:44 | Outpatient (CLI) | payer BC, SELFPAY ==
[2021-01-14 11:39] LABS: Abs Immature Grans 0.03 10^3/uL (0.0-0.06); Absolute Basophil Count 0.04 10^3/uL (0.0-0.2); Absolute Eosinophil Count 0.13 10^3/uL (0.0-0.7); Absolute Lymphocyte Count 2.45 10^3/uL (1.2-3.4); Absolute Monocyte Count 0.53 10^3/uL (0.1-0.8); Absolute Neutrophil Count 3.62 10^3/uL (1.2-6.7); Basophils % 0.6; Eosinophils % 1.9; HCT 44.7 % (40.0-50.0); Immature Grans % 0.4; MCH 29.7 pg (27.0-33.0); MCHC 33.6 % (32.0-36.0); MCV 88.5 fL (80-95); Monocytes % 7.8; Neutrophils % 53.3; Nucleated RBC 0 %; Platelet Count 270 10^3/uL (130-400); RBC 5.05 10^6/uL (4.36-5.78); RDW 12.5 % (11.8-14.1); RDW-SD 40.9 fL
[2021-01-14 12:59] LABS: ALT 30 U/L (16-63); AST 18 U/L (15-37); Alkaline Phosphatase 125 U/L (46-116); Anion Gap 8.6 mmol/L (3-11); BUN 12 mg/dL (7-18); Bilirubin, Total 0.4 mg/dL (0.2-1.0); CO2 28.4 mmol/L (21.0-32.0); CREATININE 1.1 mg/dL (0.70-1.30); Chloride 106 mmol/L (98-107); Ferritin 74 ng/mL (26-388); Folate 6.7 ng/mL (8.6-20.0); Glucose 88 mg/dL (74-106); Magnesium 2.3 mg/dL (1.8-2.4); Potassium 4.4 mmol/L (3.5-5.1); Sodium 143 mmol/L (136-145); TSH 2.16 uIU/mL (0.36-3.74); Total Protein 7.4 g/dL (6.4-8.2); Vitamin B12 520 pg/mL (193-986)
[2021-01-14 16:28] LABS: T3,Free 5.3 pg/mL (2.8-5.3)
[2021-01-15 04:25] LABS: Vitamin D 25 Total 65.3 ng/mL (30-100)
[2021-01-16 11:01] LABS: EBNA IgG Positive (Negative); EBV Interpretation (See Note); VCA IgG Positive (Negative); VCA IgM Negative (Negative)
== END 2021-01-14 03:45 | disposition home or self-care (01) ==
PROVIDERS: PCP Internal Medicine; Visit Provider Naturopath
DX: R53.83 Other fatigue (principal); R51.9 Headache, unspecified; E55.9 Vitamin D deficiency, unspecified
CPT/HCPCS: 36415; 80053; 82306; 83090; 82525; 82607; 82728; 82746; 83735; 84443; 84481; 85025; 86664; 86665

== ENCOUNTER 2021-05-20 19:29 | Emergency (ER) | payer BC, SELFPAY ==
[2021-05-20] VITALS (7 sets, daily range): BP systolic 112–128; BP diastolic 73–99; PULSE 72–83; RESP 16; TEMP 36.7; O2SAT 95–98
--- NOTE | 2021-05-20 21:00 | ED.GENADUL_ITS ---
Discharge Plan Disposition Patient Disposition: HOME Condition: Stable Discharge Details Clinical Impression: Chlorine gas exposure Primary Care Provider: Wan Galvin ED Provider: Man Zamorano Home Meds and New Rx's Prescriptions: Continued propranolol 10 mg tablet 10 mg PO DAILY PRNRF: 0 sertraline 50 mg Tablet 50 mg PO DAILY RF: 0 loratadine [Claritin] 10 mg Tablet 10 mg PO DAILY PRNRF: 0 fluticasone furoate 100 mcg/actuation Blister With Device 1 inh INHALATION DAILY PRNRF: 0 Discharge Instructions Additional Instructions: Please be sure to keep windows open in your home tonight. Do not mix vinegar and chlorine bleach in the future as this will produce potentially harmful fumes. Please contact your primary care physician to arrange follow-up. Return to the ER immediately for any worsening or new concerning symptoms. Referrals: Wan Galvin MD [Primary Care Provider] - Discharge Data Discharge Date/Time-TO BE ENTERED AT DEPARTURE: 05/20/21 21:41 Medical Decision Making 26-year-old male accidental inhalation of vinegar and bleach solution that likely produce chlorine gas. Time of exposure was minimal. Patient saturating well in no respiratory distress. Lungs clear to auscultation. I called and spoke with [facility] discussed ED presentation they recommend brief observation of 1 to 2 hours to ensure no worsening symptoms. --Patient was reassessed and noted significant improvement in symptoms. Patient continues saturating well in no respiratory distress. Plan for discharge. Discharge instructions reviewed with patient. HPI General Mode of arrival: ambulatory . Date/Time Provider Initiated Documentation: 05/20/21 20:14 . Limitations to Documentation: no limitations . Information obtained by: patient . HPI Narrative: 26-year-old male presents with chief complaint of breathing discomfort. Patient notes that just prior to arrival today he was cleaning his floor and accidentally mixed vinegar and chlorine bleach household strength with swiffer chemical. He states he inhaled strong fumes from the mixture and lungs feel irritated. Patient notes he had sme coughing. The back of his throat hurts. No syncope. He immediately left the area with noxious fumes. Related Data Home Medications Medication Instructions Recorded Confirmed fluticasone furoate 1 inh INHALATION DAILY PRN 09/13/20 05/20/21 loratadine [Claritin] 10 mg PO DAILY PRN 09/13/20 05/20/21 sertraline 50 mg PO DAILY 09/13/20 05/20/21 propranolol 10 mg PO DAILY PRN 05/20/21 05/20/21 Allergies Allergy/AdvReac Type Severity Reaction Status Date / Time annatto Allergy Skin Rash Unverified 05/20/21 19:43 environmental Allergy Skin Rash Uncoded 05/20/21 19:43 General Stated Complaint: RespSymp BOLIVAR: 3 Review of Systems ENT Ears, Nose, Mouth, and Throat: Reports as per HPI Cardiovascular Cardiovascular: Denies syncope Respiratory Respiratory: Reports as per HPI Gastrointestinal Gastrointestinal: Denies nausea and Denies vomiting Neurologic Neurologic: Denies syncope [facility] Medical History Anxiety Epilepsy Surgical History No significant past surgical history Social History Smoking/Tobacco Use Status: Never Smoking risk assessment performed?: Yes Alcohol Intake: former Drug use: Never Substance use type: does not use Do you feel safe at home: Yes Do you feel safe in your relationship?: Yes Exam Const General: cooperative and no acute distress HENMT Mouth: moist mucous membranes Throat: posterior oropharynx normal Eyes Conjunctivae: normal conjunctivae Resp Auscultation: clear to auscultation bilaterally, no rales, no rhonchi and no wheezes Cardio Rate: regular rate and not tachycardic Rhythm: regular rhythm Skin General skin exam: no rashes or lesions noted Neuro General: patient alert, patient awake, patient oriented x3 and tone normal Speech: speech normal Course Vital Signs Vital signs: Vital Signs Temperature 36.7 C 05/20/21 19:39 Pulse 78 05/20/21 19:39 Respiratory Rate 16 05/20/21 19:39 Blood Pressure 128/99 H 05/20/21 19:39 Pulse Oximetry 97 05/20/21 19:39 Temperature 36.7 C 05/20/21 19:39 Temperature Source Skin 05/20/21 19:39 Pulse 83 05/20/21 20:00 Respiratory Rate 16 05/20/21 20:00 Respiratory Effort Non-Labored 05/20/21 19:44 Respiratory Depth Normal 05/20/21 19:44 Blood Pressure 122/76 05/20/21 20:00 Blood Pressure Position Sitting 05/20/21 19:39 Pulse Oximetry 97 05/20/21 20:00 Oxygen Delivery Method Room Air 05/20/21 20:00 Oxygen Flow Rate 0 05/20/21 20:00 Pain Level 5 05/20/21 19:39
== END 2021-05-20 21:41 | disposition home or self-care (01) ==
PROVIDERS: Emergency Provider Student in an Organized Health Care Education/Training Program; PCP Internal Medicine
DX: T59.4X1A Toxic effect of chlorine gas, accidental (unintentional), initial encounter (principal); R06.00 Dyspnea, unspecified; R05 Cough; J02.9 Acute pharyngitis, unspecified
CPT/HCPCS: 99282; 99283

== ENCOUNTER 2021-09-24 04:22 | Outpatient (CLI) | payer BC, SELFPAY ==
[2021-09-24 13:07] LABS: Abs Immature Grans 0.02 10^3/uL (0.0-0.06); Absolute Basophil Count 0.04 10^3/uL (0.0-0.2); Absolute Eosinophil Count 0.18 10^3/uL (0.0-0.7); Absolute Monocyte Count 0.46 10^3/uL (0.1-0.8); Absolute Neutrophil Count 3.84 10^3/uL (1.2-6.7); Basophils % 0.6; Eosinophils % 2.7; HCT 45.4 % (40.0-50.0); HGB 15.1 g/dL (13.5-17.5); Immature Grans % 0.3; Lymphocytes % 32.6; MCH 29.7 pg (27.0-33.0); MCHC 33.3 % (32.0-36.0); MCV 89.4 fL (80-95); MPV 9.1 fL (8.0-11.0); Monocytes % 6.8; Nucleated RBC 0 %; Platelet Count 263 10^3/uL (130-400); RBC 5.08 10^6/uL (4.36-5.78); RDW 12.3 % (11.8-14.1); RDW-SD 40.3 fL; WBC 6.74 10^3/uL (4.4-10.8)
[2021-09-24 13:50] LABS: Hemoglobin A1C 5.1 % (<5.7)
[2021-09-24 14:46] LABS: FREE T4 0.87 ng/dL (0.76-1.46); TSH 0.91 uIU/mL (0.36-3.74)
[2021-09-25 14:16] LABS: ANA Interpretation Positive (Negative); ANA Titer Pattern 1:80 Speckled
[2021-09-25 22:34] LABS: 25-Hydroxy D Total 48 ng/mL; 25-Hydroxy D2 <4.0 ng/mL; 25-Hydroxy D3 48 ng/mL
== END 2021-09-24 04:23 | disposition home or self-care (01) ==
LOC: LBO 04:23
PROVIDERS: PCP Internal Medicine; Visit Provider Naturopath
DX: E66.9 Obesity, unspecified (principal); R53.83 Other fatigue; G40.802 Other epilepsy, not intractable, without status epilepticus; E55.9 Vitamin D deficiency, unspecified; Z13.1 Encounter for screening for diabetes mellitus; R05.8 Other specified cough
CPT/HCPCS: 36415; 82306; 83036; 84439; 84443; 85025; 86038